=== PATIENT | male | born 1985 | race Two or more races ===

== ENCOUNTER → 2024-11-15 | Outpatient (CLI) | payer MEDICAID, SELFPAY ==
--- NOTE | 2024-11-15 09:39 | XR_ITS ---
Examination: Foot, left, 3 views Technique: AP, oblique, lateral views foot, 3 views Date and time of exam: November 15, 2024 0941 hours INDICATIONS: Left foot pain beginning 6 months ago. FINDINGS: Moderate narrowing first metatarsophalangeal joint No fracture or dislocation No cortical bone destruction IMPRESSION: Moderate narrowing first metatarsophalangeal joint
== END | disposition home or self-care (01) ==
LOC: CDIM 09:30
PROVIDERS: PCP Obstetrics & Gynecology; Referring Provider Obstetrics & Gynecology; Visit Provider Obstetrics & Gynecology
DX: M25.872 Other specified joint disorders, left ankle and foot (principal)
CPT/HCPCS: 73630